=== PATIENT | female | born 1950 | race American Indian/Alaskan Native ===

== ENCOUNTER 2020-08-02 16:42 | Emergency (ER) | payer MEDICARE ==
[2020-08-02 16:53] VITALS: BP 161/92
[2020-08-02] MEDS ORDERED: ASPIRIN 325 MG TAB PO ONE (17:00)
--- NOTE | 2020-08-02 17:41 | XRay Report ---
CHEST 2 VIEWS INDICATION / CLINICAL INFORMATION: cp. Chest pain FINDINGS: SUPPORT DEVICES: None. HEART / MEDIASTINUM: Mild prominence of the fely bilaterally LUNGS / PLEURA: No significant pulmonary or pleural abnormality. No pneumothorax. ADDITIONAL FINDINGS: No significant additional findings. IMPRESSION: Mild bilateral hilar prominence possibly secondary to underlying increased vascularity versus adenopa thy. The lungs are grossly clear Signer Name: Christoph Bush MD Signed: 08/02/2020 5:37 PM Workstation Name: [id number]
[2020-08-02 17:48] LABS: Basophils # (Auto) 0.1 K/mm3 (0.0-0.1); Basophils % (Auto) 1.1 % (0.0-1.8); Eosinophils # (Auto) 0.1 K/mm3 (0.0-0.4); Eosinophils % (Auto) 1.4 % (0.0-4.3); Hematocrit 40.6 % (30.3-42.9); Hemoglobin 13.7 gm/dl (10.1-14.3); Lymphocytes # (Auto) 3.8 K/mm3 (1.2-5.4); Lymphocytes % (Auto) 43.7 % (13.4-35.0); Mean Corpuscular HGB Conc 34 % (30-34); Mean Corpuscular Volume 90 fl (79-97); Monocytes # (Auto) 0.8 K/mm3 (0.0-0.8); Monocytes % (Auto) 8.8 % (0.0-7.3); Platelet Count 220 K/mm3 (140-440); Red Blood Count 4.54 M/mm3 (3.65-5.03); Red Cell Distribution Width 14.4 % (13.2-15.2)
[2020-08-02 18:39] LABS: Alanine Aminotransferase 22 units/L (7-56); BUN/Creatinine Ratio 13; Blood Urea Nitrogen 15 mg/dL (7-17); Calcium 8.8 mg/dL (8.4-10.2); Hemolysis Index 7
--- NOTE | 2020-08-12 10:30 | Electrocardiograph Report ---
[facility] Test Date: 2020-08-02 Test Time: 16:55:30 Pat Name: BEVERLY HOLM Department: Room: Gender: F Pc Analyst: HERVE : 1950 Requested By: JACLYN CORONEL Order Number: [id number] Reading MD: Liz Gao Measurements Intervals [place] Rate: 97 P: 45 OR: 199 QRS: 11 QRSD: 90 T: 47 QT: 367 QTc: 468 Interpretive Statements Sinus rhythm No previous ECG available for comparison Electronically Signed On 08-12-2020 10:30:13 EDT by Liz Gao
== END 2020-08-02 17:10 | disposition left against medical advice (07) ==
LOC: ED 16:42
DX: R07.89 Other chest pain (principal); Z53.21 Procedure and treatment not carried out due to patient leaving prior to being seen by health care provider
CPT/HCPCS: 36415; 71046; 80053; 84484; 85025; 93005